=== PATIENT | male | born 1985 | race American Indian/Alaskan Native ===

== ENCOUNTER 2019-07-24 16:54 | Inpatient (IN) | payer MEDICARE ==
[2019-07-24] MEDS ORDERED: ONDANSETRON 4 MG/2 ML INJ IV ONE (18:18)
[2019-07-24] MEDS ORDERED: SODIUM CHLORIDE 0.9% 1000 ML 1,000 ML IV ONE ×2 (18:18→21:23)
[2019-07-24] MEDS ORDERED: MORPHINE 4 MG/1 ML INJ IV ONE ×2 (18:18→19:42)
[2019-07-24 18:50] LABS: Basophils # (Auto) 0.1 K/mm3 (0.0-0.1); Basophils % (Auto) 0.4 % (0.0-1.8); Eosinophils % (Auto) 0.3 % (0.0-4.3); Hematocrit 45.3 % (35.5-45.6); Hemoglobin 15.4 gm/dl (11.8-15.2); Lymphocytes # (Auto) 2.2 K/mm3 (1.2-5.4); Lymphocytes % (Auto) 15.9 % (13.4-35.0); Mean Corpuscular HGB Conc 34 % (32-34); Mean Corpuscular Volume 91 fl (84-94); Monocytes # (Auto) 1.3 K/mm3 (0.0-0.8); Monocytes % (Auto) 8.9 % (0.0-7.3); Platelet Count 215 K/mm3 (140-440); Red Cell Distribution Width 13.9 % (13.2-15.2)
[2019-07-24 18:58] LABS: INR 0.99 (0.87-1.13)
[2019-07-24 18:59] LABS: Partial Thromboplastin Time 30.5 Sec. (24.2-36.6)
[2019-07-24 19:05] LABS: Alanine Aminotransferase 44 units/L (7-56); Albumin 4.6 g/dL (3.9-5); BUN/Creatinine Ratio 8; Blood Urea Nitrogen 9 mg/dL (9-20); Calcium 8.9 mg/dL (8.4-10.2); Hemolysis Index 7
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
[2019-07-24] MEDS ORDERED: fentaNYL 100 MCG/2 ML INJ ONE (20:04)
--- NOTE | 2019-07-24 20:36 | Cat Scan Report ---
CT abdomen pelvis w con INDICATION / CLINICAL INFORMATION: abdominal pain diffuse. TECHNIQUE: Axial CT imaging of abdomen and pelvis was obtained with IV contrast. Coronal and sagittal reformatte d imaging obtained and reviewed. All CT scans at this location are performed using CT dose reduction for ALARA by means of automated exposure control. COMPARISON: None available. FINDINGS: CT abdomen with contrast demonstrates mild hepatic steatosis. The liver is otherwise grossly unremark able. Spleen, pancreas, kidneys, adrenal glands, and gallbladder all appear grossly unremarkable. No biliary dilatation. No hydronephrosis. There may be a tiny nonobstructing calculus in the lower pole of the right kidney. CT pelvis with contrast demonstrates mild inflammation of the appendix. The appendix is retrocecal in location. The appearance is consistent with acute appendicitis. The appendix is located proximally 5 cm above the iliac crest. No pelvic mass or free fluid is identified. The remainder of the GI tract is unremarkable. Visualized lung bases are grossly clear. No acute osseous abnormality. IMPRESSION: 1. Mild acute appendicitis. The appendix is retrocecal in location and is located approximately 5 cm above the level of the iliac crest. 2. Nonobstructing right intrarenal calculus. Signer Name: Wendy Lee MD Signed: 07/24/2019 8:31 PM Workstation Name: [id number]
[2019-07-24] MEDS ORDERED: PIPERACIL/TAZOBACTA 4.5/NS 100 4.5 GM/100 ML VIAL IV ONE ×2 (21:23→22:51)
[2019-07-24] MEDS ORDERED: MORPHINE 2 MG/1 ML INJ IV PRN (21:33)
[2019-07-24] MEDS ORDERED: ACETAMINOPHEN 325 MG TAB PO PRN (21:33)
[2019-07-24] MEDS ORDERED: METOCLOPRAMIDE 10 MG/2 ML INJ IV PRN (21:33)
[2019-07-24] MEDS ORDERED: ONDANSETRON 4 MG/2 ML INJ IV PRN (21:33)
[2019-07-24] MEDS ORDERED: LORazepam 2 MG/ML VIAL IV PRN (21:44)
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
[2019-07-24] MEDS ORDERED: SODIUM CHLORIDE 0.9% 1000 ML 1,000 ML ONE (22:51)
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
[2019-07-24] MEDS: NICOTINE 14 MG/24 HR PATCH TD SCH (23:50)
[2019-07-25] MEDS: MORPHINE 4 MG/1 ML INJ IV PRN ×3 (00:20→07:27)
[2019-07-25] MEDS: SODIUM CHLORIDE 0.9% 1000 ML 1,000 ML IV SCH ×2 (04:07→20:17)
[2019-07-25] MEDS: PIPERACILLIN/TAZOBACTAM 3.375 3.375 GM/50 ML BAG IV SCH ×3 (04:44→20:09)
[2019-07-25 05:34] LABS: Basophils # (Auto) 0.1 K/mm3 (0.0-0.1); Basophils % (Auto) 0.6 % (0.0-1.8); Eosinophils # (Auto) 0.1 K/mm3 (0.0-0.4); Eosinophils % (Auto) 1.3 % (0.0-4.3); Hematocrit 41.1 % (35.5-45.6); Hemoglobin 14.2 gm/dl (11.8-15.2); Lymphocytes # (Auto) 2.7 K/mm3 (1.2-5.4); Lymphocytes % (Auto) 26.1 % (13.4-35.0); Mean Corpuscular HGB Conc 34 % (32-34); Mean Corpuscular Volume 90 fl (84-94); Monocytes % (Auto) 9.8 % (0.0-7.3); Platelet Count 200 K/mm3 (140-440); Red Blood Count 4.56 M/mm3 (3.65-5.03); Red Cell Distribution Width 13.4 % (13.2-15.2)
[2019-07-25 06:00] LABS: BUN/Creatinine Ratio 9; Blood Urea Nitrogen 8 mg/dL (9-20); Calcium 8.5 mg/dL (8.4-10.2); Hemolysis Index 3
[2019-07-25 07:13] LABS: Bacteria,Urine 1+ /HPF (Negative); Bilirubin,Urine NEG (Negative); Blood,Urine NEG (Negative); Color,Urine Yellow (Yellow); Mucus,Urine FEW /HPF; Protein,Urine <15 mg/dL mg/dL (Negative); Urobilinogen,Urine < 2.0 mg/dL (<2.0)
[2019-07-25 07:18] LABS: Benzodiazepines Screen,Urine PRESUMPTIVE NEGATIVE; Cannabinoid Screen,Urine PRESUMPTIVE NEGATIVE; Cocaine Screen,Urine PRESUMPTIVE NEGATIVE; Methadone Screen,Urine PRESUMPTIVE NEGATIVE
[2019-07-25 07:33] LABS: Amphetamine Screen,Urine PRESUMPTIVE POSITIVE; Opiate Screen,Urine PRESUMPTIVE POSITIVE
[2019-07-25] MEDS: HYDROmorphone 1 MG/1 ML INJ IV PRN ×2 (09:27→20:14)
[2019-07-25] MEDS: NICOTINE 14 MG/24 HR PATCH TD SCH (09:45)
[2019-07-25] MEDS ORDERED: ENOXAPARIN 40 MG/0.4 ML INJ SUB-Q SCH (10:00)
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
[2019-07-25] MEDS ORDERED: HYDROmorphone 1 MG/1 ML INJ IV ONE (12:00)
[2019-07-25] MEDS ORDERED: LIDOCAINE (1%) 10 MG/1 ML VIAL 20 ML MDV ONE (13:08)
[2019-07-25] MEDS ORDERED: BUPIVACAINE/PF (0.5%) 5 MG/1 ML 30 ML VIAL INFILTRATI ONE ×3 (13:09→14:47)
[2019-07-25] MEDS ORDERED: HYDROmorphone 1 MG/1 ML INJ IV PRN (13:50)
[2019-07-25] MEDS ORDERED: fentaNYL 100 MCG/2 ML INJ IV PRN (13:50)
[2019-07-25] MEDS ORDERED: ONDANSETRON 4 MG/2 ML INJ IV PRN (13:50)
--- NOTE | 2019-07-25 13:52 | Anesthesia Day of Surgery ---
Anesthesia Day of Surgery - Day of Surgery Patient Examined: Yes Patient H&P Reviewed: Yes Patient is NPO: Yes
--- NOTE | 2019-07-25 13:52 | Anesthesia Consultation ---
Anesthesia Consult and Med Hx Date of service: 07/25/19 - Airway Anesthetic Teeth Evaluation: Good ROM Head & Neck: Adequate Mental/Hyoid Distance: Adequate Mallampati Class: Class II Intubation Access Assessment: Good - Pre-Operative Health Status ASA Pre-Surgery Classification: ASA2 Proposed Anesthetic Plan: General - Pulmonary Hx Smoking: Yes Hx Asthma: No COPD: No Hx Pneumonia: No - Central Nervous System Hx Psychiatric Problems: Yes (Catatonic depression) - Endocrine Hx End Stage Renal Disease: No - Other Systems Hx Cancer: No
[2019-07-25] MEDS ORDERED: LIDOCAINE MPF (2%) 20 MG/1 ML VIAL 5 ML ONE (14:07)
[2019-07-25] MEDS ORDERED: ROCURONIUM 50 MG/5 ML INJ IV ONE (14:07)
[2019-07-25] MEDS ORDERED: fentaNYL 100 MCG/2 ML INJ ONE (14:08)
[2019-07-25] MEDS ORDERED: PROPOFOL 200 MG/20 ML VIAL IV ONE (14:08)
[2019-07-25] MEDS ORDERED: MIDAZOLAM 2 MG/2 ML INJ ONE (14:08)
[2019-07-25] MEDS ORDERED: LIDOCAINE (1%) 10 MG/1 ML VIAL 20 ML MDV INFILTRATI ONE (14:54)
[2019-07-25] MEDS ORDERED: WATER FOR IRRIG STERILE 1,500 ML BOTTLE IR ONE (14:55)
[2019-07-25] MEDS ORDERED: SODIUM CHLORIDE 0.9% IRR 1,500 ML BOTTLE IR ONE (14:55)
[2019-07-25] MEDS ORDERED: HYDROmorphone 1 MG/1 ML INJ ONE (14:59)
[2019-07-25] MEDS ORDERED: KETOROLAC 30 MG/1 ML INJ ONE ×2 (15:00→15:23)
[2019-07-25] MEDS ORDERED: ONDANSETRON 4 MG/2 ML INJ ONE (15:00)
[2019-07-25] MEDS ORDERED: dexAMETHasone 20 MG/5 ML VIAL ONE (15:00)
[2019-07-25] MEDS ORDERED: GLYCOPYRROLATE 0.4 MG/2 ML INJ ONE (15:22)
[2019-07-25] MEDS ORDERED: NEOSTIGMINE 10MG/10 ML INJ MDV ONE (15:22)
[2019-07-25] MEDS ORDERED: SUGAMMADEX SODIUM 200 MG/2 ML VIAL IV ONE ×2 (15:30→15:49)
--- NOTE | 2019-07-25 15:40 | Post Operative Note ---
Date of procedure: 07/25/19 (dictation:[id number]) Pre-op diagnosis: acute appendicitis Post-op diagnosis: same Findings: retrocecal appendix. Thickened and inflamed. No perforation. Moderate adhesions in the RLQ. Procedure: Lap appy Lap lysis of adhesions. IVF 1L EBL<10cc Anesthesia: GETA Surgeon: ELIZABETH MATHEWS Estimated blood loss: minimal Pathology: list (appendix) Specimen disposition: to lab Condition: stable Disposition: PACU
[2019-07-25] MEDS ORDERED: flumazeniL 0.5 MG/5 ML INJ IV ONE (15:43)
[2019-07-25] MEDS ORDERED: HYDROcodone/ACETAMINOPHEN 5-325 MG TAB PO PRN (16:00)
[2019-07-25] MEDS ORDERED: LACTATED RINGERS 1,000 ML ONE (16:25)
--- NOTE | 2019-07-25 17:03 | Operative Report ---
PREOPERATIVE DIAGNOSIS: Acute appendicitis. POSTOPERATIVE DIAGNOSIS: Acute appendicitis. PROCEDURE: 1. Laparoscopic appendectomy. 2. Laparoscopic lysis of adhesions. ATTENDING PHYSICIAN: Tigre Apodaca MD ANESTHESIA: General. ESTIMATED BLOOD LOSS: Minimal. FLUIDS: 1 liter. FINDINGS: Dense adhesions in the right lower quadrant. Retrocecal appendix. Appendix was found to be thickened and inflamed. No adhesions in the midline underneath his previous exploratory laparotomy incision. SPECIMENS: Appendix. DRAINS: None. COMPLICATIONS: None. DISPOSITION: Stable, transferred to recovery room. INDICATIONS: This is a 34-year-old male, who presented with acute onset of right lower quadrant pain. CT scan confirmed appendicitis. The patient was assessed to be need for surgery. Procedure, risks, benefits were explained to the patient and mother. Risks included but were not limited to infection, bleeding, pain, injury to surrounding structures, possible need for open surgery, possible need for further procedures in the future. The patient and mother understood. Consent was obtained. OPERATIVE NOTE: The patient was brought to the operating room and placed on the table in supine position. After adequate general anesthesia was established, Sharma catheter was placed. SCDs were in place. Antibiotics had already been given as the patient was on scheduled antibiotics. Sterile prep and drape was performed. Time-out was called. As the patient had a previous midline incision, I felt it would be best to use an open technique. Therefore, using part of the upper midline incision, I divided the scar in the middle. I dissected down to the fascia with electrocautery and then I entered the peritoneal cavity. I entered safely. There was no injury to the underlying structures. 0 Vicryl stay suture was placed that I was going to use at the end for closure. Inna port was inserted. Abdomen was insufflated. Camera was inserted. We saw that we clearly did not injure anything underneath. There were no adhesions in the midline. The patient was placed in Trendelenburg and rotated to the left. Two 5 mm ports were then placed under direct vision, one in the midline in the suprapubic area and one in the left lower quadrant. Dense adhesions were noted in the right lower quadrant. I had to mobilize the cecum along the white line of Toldt. I had to mobilize the terminal ileum from the lateral sidewall and away from the cecum itself. This was done with a combination of blunt dissection and LigaSure division. We did this in a stepwise manner, taking small bites to minimize risk of injury as visualization was a little bit challenging due to the prior adhesions and current inflammation. However, from the CT scan, I knew that the appendix was retrocecal; therefore, I was able to focus my attention more in the lateral aspect, mobilized the cecum and then get underneath. This helped greatly as the appendix was not easily seen. There were dense adhesions, inflammatory changes and fat around it; however, I was able to feel a solid structure that was distinct from the cecum and what I dissected out to be the terminal ileum. I then slowly this structure from the surrounding tissue and indeed that was the appendix. We took down the mesoappendix surrounding adhesions and surrounding fat tissue in a stepwise manner, doing very gentle dissection to spread the tissue and tissue that was seen enough was divided with the LigaSure device. With this technique, I was able to gradually get down to the base. We cleared off the base completely. We had divided the mesoappendix with the LigaSure device. Everything looked very good. I saw no evidence of any injury to the cecum or the terminal ileum. I was very satisfied with that appearance. Laparoscopic stapler 45 mm with a blue load was inserted. I then stapled across the base parallel to the cecum itself. Staple line was flushed with the cecum. It was hemostatic. There were no GI contents leaking out. Everything looked excellent. Specimen was placed in the EndoCatch bag left on the side. I inserted a Ray-Luke and then dab the area to make sure everything looked very good. I was satisfied with the appearance. There was no evidence of any perforation. There was no evidence of any GI leak or bleeding. I then removed the appendix in the EndoCatch bag from the camera port site. Because the dissection was challenging, because extra time was required and the visualization of the appendix was difficult, I paused the case at this point and I took the specimen to the back table and looked at it just to make sure that I indeed removed the appendix, it did feel and look like the appendix and so I felt I had achieved my objective. I went back to the patient. I changed gloves to make sure there was no contamination. The two 5 mm ports were removed. I used the stay suture to close the midline fascia. Additional local was injected into all the sites. Hemostasis was achieved with electrocautery and then the skin sites were closed with garth. Skin was cleaned and dried. Dressings were placed. The patient tolerated the procedure well. There were no complications. All counts were correct at the end of the case. I spoke with the mother by phone at the end of the case. She was very appreciative. JOB# [id number] AALIYAH/HARDIK
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
--- NOTE | 2019-07-25 20:20 | Post Anesthesia Evaluation ---
- Post Anesthesia Evaluation Patient Participated: Yes Airway Patent: Yes Stable Respiratory Function: Yes Nausea/Vomiting: No Temp > 96.8F: Yes Pain Manageable: Yes Adequeate Hydration: Yes Anesthesia Complications: No Block Receding Appropriately: Not Applicable Patient on Ventilator: No
[2019-07-25] MEDS: KETOROLAC 30 MG/1 ML INJ IV SCH (22:30)
[2019-07-26] MEDS: KETOROLAC 30 MG/1 ML INJ IV SCH ×3 (01:04→12:21)
[2019-07-26] MEDS: PIPERACILLIN/TAZOBACTAM 3.375 3.375 GM/50 ML BAG IV SCH (03:20)
[2019-07-26] MEDS: HYDROmorphone 1 MG/1 ML INJ IV PRN (03:38)
[2019-07-26] MEDS: SODIUM CHLORIDE 0.9% 1000 ML 1,000 ML IV SCH (06:48)
--- NOTE | 2019-07-26 08:03 | Progress Note ---
Assessment and Plan - Patient Problems (1) Appendicitis Current Visit: Yes Status: Acute Qualifiers: Appendicitis type: acute appendicitis Acute appendicitis type: with localized peritonitis Appendicitis gangrene presence: without gangrene Appendicitis perforation presence: without perforation Appendicitis abscess presence: without abscess Qualified Code(s): K35.30 - Acute appendicitis with localized peritonitis, without perforation or gangrene Plan to address problem: s/p lap appy. Pt stable. ok to d/c home if breakfast tolerated this AM. Rec: 1) f/u in 10-14 days for staple removal 2) may shower tomorrow. Pat dry wounds. May leave open to air after shower tomorrow. 3) no need for Abx at home. 4) pain meds per hospitalist 5) no heavy lifting for 4 weeks. 6) diet as tolerated please call with questions. Subjective Date of service: 07/26/19 Patient Reports: Positive: no new complaints, feels better Objective Vital Signs - 12hr 07/25/19 07/25/19 07/25/19 20:14 22:00 22:30 Temperature Pulse Rate Respiratory 17 17 Rate Respiratory 17 Rate [Abdomen] Respiratory 17 Rate [denies] Blood Pressure O2 Sat by Pulse Oximetry 07/25/19 07/26/19 07/26/19 23:00 00:18 03:38 Temperature 98.0 F Pulse Rate 83 Respiratory 17 20 17 Rate Respiratory Rate [Abdomen] Respiratory Rate [denies] Blood Pressure 125/71 O2 Sat by Pulse 97 97 Oximetry 07/26/19 07/26/19 07/26/19 04:08 04:52 06:20 Temperature 98.3 F Pulse Rate 86 Respiratory 17 20 17 Rate Respiratory Rate [Abdomen] Respiratory Rate [denies] Blood Pressure 108/72 O2 Sat by Pulse 92 Oximetry - General physical appearance no distress, no pain - Eyes normal occular movement - Respiratory normal expansion, normal respiratory effort - Abdomen soft - Integumentary no rash, no growths, no abnormal pigmentation - Labs 07/25/19 05:12 07/25/19 05:12
--- NOTE | 2019-07-26 10:04 | Discharge Summary ---
Providers - Providers Date of Admission: 07/24/19 21:33 Date of discharge: 07/26/19 Attending physician: RAMOS MAYO 07/24/19 21:27 Consult to Physician [CONS] Stat Comment: Consulting Provider: SONDRA DAY Physician Instructions: Reason For Exam: appendicitis Primary care physician: MOOK SERRA Hospitalization Condition: Fair Hospital course: Patient is 34-year-old -[place] male who is an ongoing smoker with history of anxiety, catatonic depression, and Abd surgery . He presented with abdominal pain. CT Abdomen revealed acute appendicitis. He was admitted, evaluated by Surgeon. Laparoscopic appendectomy was done on 07/25/19 and he was discharged home on 07/26/19. Total time spent on discharge, 31 mins Disposition: - TO HOME OR SELFCARE - Discharge Diagnoses (1) S/P appendectomy Status: Acute (2) Appendicitis Status: Acute Qualifiers: Appendicitis type: acute appendicitis Acute appendicitis type: with loca lized peritonitis Appendicitis gangrene presence: without gangrene Appendicitis perforation presence: without perforation Appendicitis abscess presence: without abscess Qualified Code(s): K35.30 - Acute appendicitis with localized peritonitis, without perforation or gangrene Core Measure Documentation - Palliative Care Palliative Care/ Comfort Measures: Not Applicable - Core Measures Any of the following diagnoses?: none Exam - Constitutional Vitals: Temp Pulse Resp BP Pulse Ox 98.3 F 78 18 113/73 92 07/26/19 09:12 07/26/19 09:12 07/26/19 09:12 07/26/19 09:12 07/26/19 09:12 Plan Activity: other (No heavy lifting for 4 weeks) Diet: low fat, low cholesterol, low salt Plan of Treatment: 1.Follow up with PCP in 1 week 2.Follow up with Dr. Apodaca, Surgeon in 10-14 days Follow up with: MOOK SERRA III, [employer] [Primary Care Provider] - 3-5 Days Prescriptions: HYDROcodone/APAP 5-325 [[place] 5-325 mg TAB] 1 each PO Q6H PRN #15 tablet PRN Reason: Pain, Moderate (4-6)
[2019-07-26] MEDS: NICOTINE 14 MG/24 HR PATCH TD SCH (10:18)
[2019-07-26 13:09] VITALS: BP 125/75
== END 2019-07-26 14:55 | disposition home or self-care (01) | DRG 337 ==
LOC: ED 16:54 → 3B-SURG 21:33
PROVIDERS: ADMIT Internal Medicine; ATTEND Internal Medicine
PROC: 0DTJ4ZZ Resection of Appendix, Percutaneous Endoscopic Approach (ICD-10-PCS; principal; 2019-07-25)
PROC: 0DNW4ZZ Release Peritoneum, Percutaneous Endoscopic Approach (ICD-10-PCS; 2019-07-25)
DX: K35.30 Acute appendicitis with localized peritonitis, without perforation or gangrene (principal); F32.9 Major depressive disorder, single episode, unspecified; F17.210 Nicotine dependence, cigarettes, uncomplicated; N20.0 Calculus of kidney; F41.9 Anxiety disorder, unspecified; F06.1 Catatonic disorder due to known physiological condition; K66.0 Peritoneal adhesions (postprocedural) (postinfection); Z71.6 Tobacco abuse counseling
CPT/HCPCS: 36415; 74177; 80048; 80053; 80307; 81001; 83690; 85025; 85610; 85730; 88304; 93005; 93010; 96374; G0378; J1100; J1170; J1885; J2250; J2270; J2405; J2543; J2704; J2710; J3010; J7030; J7120; Q9967